=== PATIENT | male | born 1945 | race Caucasian/White ===

== ENCOUNTER 2016-06-20 19:02 | Emergency (ER) | payer OTHER ==
[~2016-06-20] VITALS: Ht 185.4 cm; Wt 107.0 kg
[~2016-06-20 19:02] MED LIST: AMOX500T2; NEXI40CA
[2016-06-20 19:04] VITALS: BP 182/79; PULSE 75; RESP 14; TEMP 98.2; O2SAT 98
--- NOTE | 2016-06-20 21:44 | PD ---
HPI Chief Complaint: Laceration/Skin Injury Time Seen by Provider: 21:04 Travel History International Travel<30 days: No Contact w/Intl Traveler<30days: No Traveled to known affect area: No History of Present Illness HPI Patient comes in complaining of laceration to his right upper eyebrow that occurred shortly prior to arrival. Patient states that he went to bend over to get his sunglasses out of his car when he accidentally hit his head on the roof of the car. Patient denies any loss of consciousness or headache. Patient states he primarily Is concerned as he is on Plavix and aspirin was having difficulty getting it to stop bleeding. Patient reports it has since stopped bleeding. Patient denies any pain with this. Patient is uncertain of his last tetanus shot. Patient denies doing anything for this prior coming to the emergency department. PFSH Past Medical History Hx Anticoagulant Therapy: Yes (PLAVIX, ASA) Cardiovascular Problems: Yes (STENT, HTN) Diminished Hearing: No GERD: Yes Past Surgical History Abdominal Surgery: Yes (PARTIAL COLECTOMY -BENIGH POLYP) Tonsillectomy: Yes Social History Alcohol Use: No Tobacco Use: No Allergies-Medications (Allergen,Severity, Reaction): Coded Allergies: No Known Allergies (Verified , 06/20/16) Reported Meds & Prescriptions Reported Meds & Active Scripts Active Reported Augmentin (Amoxicillin/Clavulanate Potassium) 500 Mg Tab Nexium (Esomeprazole) 40 Mg Cap Review of Systems Except as stated in HPI: all other systems reviewed are Neg Physical Exam Narrative GENERAL: Well-developed, overly nourished, in no acute distress, and non-ill appearing. SKIN: Warm and dry. Approximately 1.5 cm skin laceration noted at the right eyebrow temporal aspect. HEAD: Atraumatic. Normocephalic. EYES: Pupils equal and round. EOMI. No scleral icterus. No injection or drainage. ENT: No nasal bleeding or discharge. Mucous membranes pink and moist. NECK: Trachea midline. Supple. No nuclear rigidity. RESPIRATORY: No accessory muscle use. No respiratory distress. MUSCULOSKELETAL: No obvious deformities. No clubbing. No cyanosis. No edema. Full range of motion. NEUROLOGICAL: Awake and alert. No obvious cranial nerve deficits. Motor grossly within normal limits. Normal speech. PSYCHIATRIC: Appropriate mood and affect; insight and judgment normal. Data Data Last Documented VS Vital Signs Date Time Temp Pulse Resp B/P Pulse Ox O2 Delivery O2 Flow Rate FiO2 06/20/16 19:04 98.2 75 14 182/79 98 Room Air MDM Medical Decision Making Medical Screen Exam Complete: Yes Emergency Medical Condition: Yes Differential Diagnosis Laceration, abrasion, contusion, other Narrative Course Patient was offered suturing however is wanting skin glue instead. The patient suffered laceration to the face. The laceration appeared clean. There was no evidence to suggest foreign bodies. Visual and tactile exams were unremarkable. There was no evidence of neurovascular injury as well. The patient was irrigated with copious sterile normal saline and primary repair was performed using Dermabond. Please see procedure note. The patient was given signs and symptom warnings for infection, such as increasing pain, redness, swelling, associated heat, pus or fever. The patient was given instructions for timely follow up. The patient agreed with plan of care. Patient in no obvious distress upon re-evaluation. Any questions/concerns in reference to patient diagnosis/condition discussed and clarified prior to patient's discharge. Reinforced sheer importance of close follow up with patient 's primary physician or primary care clinic. Instructed patient to return to ED immediately, if symptoms return/worsen. Pt showed understanding of above instructions. Further instructions and recommendations were detailed in discharge paperwork. Pt ambulated without difficulty out of ED at discharge. Procedures Procedure Narrative LACERATION REPAIR LOCATION: Temporal aspect of right eyebrow LENGTH: Approximately 1.5 cm NUMBER OF STITCHES/ALEX: Dermabond REPAIR: Verbal consent was obtained. The area of the laceration was cleaned and prepped. The wound was copiously irrigated and explored without evidence of foreign body, bony involvement, ligament injury, tendon injury, or neurovascular injury. The wound was closed using Dermabond. This was a single layer repair. The patient was advised to keep the affected area as clean and dry as possible using soap and water. There were no complications. Patient tolerated the procedure well. Diagnosis Primary Impression: Facial laceration Qualified Code: S01.81XA - Facial laceration, initial encounter Patient Instructions: Facial Laceration (ED), General Instructions, Skin Adhesive Care (ED) Additional Instructions: Follow-up with your primary care physician next week for reevaluation. Keep wound dry and clean as possible using soap and water. Return to the emergency department if symptoms get worse. Disposition: 01 DISCHARGE HOME Condition: Stable Christiano Quigley Jun 20, 2016 21:44
== END 2016-06-20 21:54 | disposition home or self-care (01) ==
LOC: NEPB 19:02
DX: S01.81XA Laceration without foreign body of other part of head, initial encounter (principal); Z79.01 Long term (current) use of anticoagulants; Z79.82 Long term (current) use of aspirin; W22.8XXA Striking against or struck by other objects, initial encounter; Y93.89 Activity, other specified; Y92.89 Other specified places as the place of occurrence of the external cause; Y99.8 Other external cause status
CPT/HCPCS: 12011